=== PATIENT | female | born 1990 | race African-American/Black ===

== ENCOUNTER 2022-10-27 13:39 | Emergency (ER) | payer OTHER ==
[~2022-10-27] VITALS: Ht 160 cm; Wt 61.7 kg
[2022-10-27 18:27] VITALS: BP 117/81
== END 2022-10-27 18:30 | disposition home or self-care (01) ==
LOC: M ED 13:39
DX: S50.12XA Contusion of left forearm, initial encounter (principal); W10.9XXA Fall (on) (from) unspecified stairs and steps, initial encounter; Y92.009 Unspecified place in unspecified non-institutional (private) residence as the place of occurrence of the external cause

== ENCOUNTER 2023-06-22 10:58 | Emergency (ER) | payer OTHER ==
[~2023-06-22] VITALS: Ht 160 cm; Wt 61.2 kg
[2023-06-22] MEDS ORDERED: IBUP200C25 PO (11:33)
[2023-06-22 14:55] LABS: BASO % 0.3 % (0.0-1.0); EOS % 0.3 % (0.0-3.0); HEMATOCRIT 40.2 % (36.0-47.0); HEMOGLOBIN 13.5 g/dl (12.0-15.5); LYMPH # 3.2 10^3/uL (1.5-5.0); LYMPH % 31.6 % (24.0-44.0); MEAN CORPUSCULAR HEMOGLOBIN 29.9 pg (27.0-33.0); MEAN CORPUSCULAR HGB CONC 33.6 g/dl (32.0-36.5); MEAN CORPUSCULAR VOLUME 89.1 fl (80.0-96.0); MONO # 0.6 10^3/uL (0.0-0.8); MONO % 5.5 % (2.0-8.0); NEUTROPHILS # 6.2 10^3/uL (1.5-8.5); PLATELET COUNT, AUTOMATED 279 10^3/uL (150-450); RED BLOOD COUNT 4.51 10^6/uL (4.00-5.40); WHITE BLOOD COUNT 10.1 10^3/uL (4.0-10.0)
[2023-06-22 15:01] LABS: ERYTHROCYTE SEDIMENTATION RATE 7 mm/hr (0-20)
[2023-06-22 15:37] VITALS: BP 121/84; TEMP 98.1; O2SAT 98
== END 2023-06-22 15:35 | disposition home or self-care (01) ==
LOC: M ED 10:58
DX: M54.50 Low back pain, unspecified (principal); Z79.1 Long term (current) use of non-steroidal anti-inflammatories (NSAID); Z53.9 Procedure and treatment not carried out, unspecified reason

== ENCOUNTER 2023-09-22 05:36 | Emergency (ER) | payer OTHER ==
[~2023-09-22] VITALS: Ht 160 cm; Wt 62.7 kg
[~2023-09-22 05:36] MED LIST: IBUP200C25 PO
[2023-09-22] MEDS ORDERED: hydrOXYzine 50 MG TAB PO STA (07:49)
[2023-09-22 08:36] LABS: BASO # 0.1 10^3/uL (0.0-0.2); BASO % 1.2 % (0.0-1.0); EOS # 0.3 10^3/uL (0.0-0.5); EOS % 5.7 % (0.0-3.0); HEMATOCRIT 41.4 % (36.0-47.0); HEMOGLOBIN 13.8 g/dl (12.0-15.5); LYMPH # 3.1 10^3/uL (1.5-5.0); LYMPH % 52.7 % (24.0-44.0); MEAN CORPUSCULAR HEMOGLOBIN 30.3 pg (27.0-33.0); MEAN CORPUSCULAR HGB CONC 33.3 g/dl (32.0-36.5); MEAN CORPUSCULAR VOLUME 90.8 fl (80.0-96.0); MONO # 0.5 10^3/uL (0.0-0.8); MONO % 8.7 % (2.0-8.0); NEUTROPHILS # 1.9 10^3/uL (1.5-8.5); NEUTROPHILS % 31.5 % (36.0-66.0); PLATELET COUNT, AUTOMATED 309 10^3/uL (150-450); RED BLOOD COUNT 4.56 10^6/uL (4.00-5.40)
[2023-09-22 08:51] LABS: RSV AMPLIFICATION NEGATIVE (NEGATIVE)
[2023-09-22 09:10] VITALS: BP 120/82; TEMP 97.4; O2SAT 100
[2023-09-22] MEDS ORDERED: HYDR50TA70 PO (09:33)
== END 2023-09-22 09:44 | disposition home or self-care (01) ==
LOC: M ED 05:36
DX: R06.00 Dyspnea, unspecified (principal); R00.2 Palpitations; R00.1 Bradycardia, unspecified; I45.10 Unspecified right bundle-branch block; Z79.811 Long term (current) use of aromatase inhibitors

== ENCOUNTER 2023-10-27 20:52 | Emergency (ER) | payer OTHER ==
[~2023-10-27] VITALS: Ht 160 cm; Wt 65.8 kg
[~2023-10-27 20:52] MED LIST changes: +HYDR50TA70 PO
[2023-10-28] MEDS ORDERED: ACETAMINOPHEN TAB 650MG DOSE (2X325MG) PO ONE (01:05)
[2023-10-28 01:29] VITALS: BP 124/76; TEMP 98.8; O2SAT 99
== END 2023-10-28 01:20 | disposition home or self-care (01) ==
LOC: M ED 20:52
DX: S06.0X0A Concussion without loss of consciousness, initial encounter (principal); W00.0XXA Fall on same level due to ice and snow, initial encounter; F10.10 Alcohol abuse, uncomplicated; Y92.410 Unspecified street and highway as the place of occurrence of the external cause; Y93.89 Activity, other specified; Y99.9 Unspecified external cause status